=== PATIENT | male | born 2000 | race Hispanic/Latino ===

== ENCOUNTER 2020-10-22 11:11 | Emergency (ER) | payer OTHER ==
[~2020-10-22] VITALS: Ht 170.2 cm; Wt 86.8 kg
[2020-10-22 12:32] VITALS: BP 128/64
== END 2020-10-22 12:42 | disposition home or self-care (01) ==
LOC: M ED 11:11
DX: M25.531 Pain in right wrist (principal); S60.511A Abrasion of right hand, initial encounter; W17.89XA Other fall from one level to another, initial encounter; Y92.89 Other specified places as the place of occurrence of the external cause; Y99.1 Military activity; F17.210 Nicotine dependence, cigarettes, uncomplicated

== ENCOUNTER 2021-09-01 16:57 | Emergency (ER) | payer OTHER ==
[~2021-09-01] VITALS: Ht 170.2 cm; Wt 81.8 kg
[2021-09-01 16:58] VITALS: BP 112/62
== END 2021-09-01 18:27 | disposition left against medical advice (07) ==
LOC: M ED 16:57
DX: Z53.29 Procedure and treatment not carried out because of patient's decision for other reasons (principal)